=== PATIENT | female | born 1960 | race Native Hawaiian/Other Pacific Islander ===

== ENCOUNTER 2019-02-07 07:25 | Outpatient (CLI) | payer BC ==
[2019-02-07 07:56] LABS: PLATELET COUNT 45 K/uL (152-353)
[2019-02-07 08:14] LABS: POTASSIUM 4.1 mmol/L (3.6-5.2)
== END 2019-02-07 19:46 | disposition home or self-care (01) ==
LOC: LABW 07:25
PROVIDERS: Internal Medicine Gastroenterology
DX: K74.60 Unspecified cirrhosis of liver (principal)
CPT/HCPCS: 36415; 80053; 82103; 82104; 82105; 82677; 82728; 83516; 83540; 83550; 84702; 85027; 85610; 86038; 86336; 86376; 86705; 86707; 86708; 86803; 87350

== ENCOUNTER 2019-12-09 08:01 | Outpatient (CLI) | payer BC ==
[2019-12-09 08:22] LABS: PLATELET COUNT 51 K/uL (152-353)
[2019-12-09 08:31] LABS: POTASSIUM 4.1 mmol/L (3.6-5.2)
== END 2019-12-10 00:19 | disposition home or self-care (01) ==
LOC: US 08:01
PROVIDERS: Internal Medicine Gastroenterology
DX: P78.81 Congenital cirrhosis (of liver) (principal)
CPT/HCPCS: 36415; 80053; 82105; 85027; 85610

== ENCOUNTER 2020-06-17 13:47 | Outpatient (CLI) | payer BC ==
[2020-06-17 14:08] LABS: PLATELET COUNT 47 K/uL (152-353)
[2020-06-17 14:11] LABS: POTASSIUM 4.2 mmol/L (3.6-5.2)
== END 2020-06-17 22:00 | disposition home or self-care (01) ==
LOC: LABW 13:47
PROVIDERS: ATTEND Internal Medicine Medical Oncology
DX: D61.818 Other pancytopenia (principal); D69.6 Thrombocytopenia, unspecified; K76.0 Fatty (change of) liver, not elsewhere classified; R16.2 Hepatomegaly with splenomegaly, not elsewhere classified; R53.81 Other malaise
CPT/HCPCS: 36415; 80053; 85027

== ENCOUNTER 2020-07-02 08:51 | Outpatient (CLI) | payer BC ==
[2020-07-02 09:08] LABS: PLATELET COUNT 47 K/uL (152-353)
== END 2020-07-02 21:46 | disposition home or self-care (01) ==
LOC: LABW 08:51
PROVIDERS: ATTEND Nurse Practitioner Adult Health
DX: D61.818 Other pancytopenia (principal); D69.6 Thrombocytopenia, unspecified; K76.0 Fatty (change of) liver, not elsewhere classified; R53.81 Other malaise; R16.2 Hepatomegaly with splenomegaly, not elsewhere classified
CPT/HCPCS: 36415; 85027

== ENCOUNTER 2020-12-21 11:39 | Outpatient (CLI) | payer BC | END 2020-12-21 21:55 | disposition home or self-care (01) | LOC: MAMMO 11:39 | PROVIDERS: ATTEND Specialist | DX: Z12.31 Encounter for screening mammogram for malignant neoplasm of breast (principal) ==

== ENCOUNTER 2020-12-30 08:09 | Outpatient (CLI) | payer BC | END 2020-12-30 20:00 | disposition home or self-care (01) | LOC: US 08:09 | PROVIDERS: ATTEND Internal Medicine Gastroenterology | DX: K74.69 Other cirrhosis of liver (principal) ==

== ENCOUNTER 2021-03-22 07:22 | Outpatient (CLI) | payer BC, OTHER | END 2021-03-22 18:52 | disposition home or self-care (01) | LOC: RAD 07:22 | PROVIDERS: ATTEND Internal Medicine | DX: U07.1 COVID-19 (principal); R05.3 Chronic cough ==

== ENCOUNTER 2021-06-15 07:55 | Outpatient (CLI) | payer BC | END 2021-06-15 21:32 | disposition home or self-care (01) | LOC: US 07:55 | PROVIDERS: ATTEND Internal Medicine Gastroenterology | DX: K74.69 Other cirrhosis of liver (principal) ==

== ENCOUNTER 2021-06-30 12:36 | Outpatient (CLI) | payer BC | END 2021-06-30 22:08 | disposition home or self-care (01) | LOC: CT 12:36 | PROVIDERS: ATTEND Registered Nurse | DX: R31.29 Other microscopic hematuria (principal) ==

== ENCOUNTER 2022-05-01 11:42 | Outpatient (CLI) | payer BC | END 2022-05-01 18:59 | disposition home or self-care (01) | LOC: MAMMO 11:42 | PROVIDERS: ATTEND Specialist | DX: Z12.31 Encounter for screening mammogram for malignant neoplasm of breast (principal) ==

== ENCOUNTER 2022-05-31 07:34 | Outpatient (CLI) | payer BC | END 2022-05-31 19:16 | disposition home or self-care (01) | LOC: US 07:34 | PROVIDERS: ATTEND Internal Medicine Gastroenterology | DX: K74.69 Other cirrhosis of liver (principal) ==

== ENCOUNTER 2022-12-21 09:01 | Outpatient (CLI) | payer BC | END 2022-12-21 19:02 | disposition home or self-care (01) | LOC: US 09:01 | PROVIDERS: ATTEND Internal Medicine Gastroenterology | DX: K74.69 Other cirrhosis of liver (principal) ==